=== PATIENT | male | born 1955 | race Two or more races ===

== ENCOUNTER 2016-07-12 12:43 | Emergency (ER) | payer OTHER ==
[~2016-07-12] VITALS: Wt 78.0 kg
[~2016-07-12 12:43] MED LIST: ASPI81TA3 PO; ATOR40TA68 PO; CARV25TA79 PO; EZET10TA3 PO; FURO-110 PO; HYDR-3671 PO; ISOS30TA5 PO; LOSA50TA6 PO; RANO500T2 PO; TICA90TA PO
[2016-07-12] MEDS ORDERED: ASPIRIN 81 MG TAB PO STA (17:34)
[2016-07-12 17:48] LABS: BASOPHILS % 0.7 % (0.0-2.0); EOSINOPHILS # 0.6 10^3/ul (0.0-0.5); EOSINOPHILS % 9.7 % (0.0-7.0); HEMATOCRIT 41.2 % (42.0-52.0); HEMOGLOBIN 13.9 g/dl (14.0-18.0); LYMPHOCYTES # 1.8 10^3/ul (0.8-2.9); LYMPHOCYTES % 28.6 % (15.0-51.0); MEAN CORPUSCULAR HEMOGLOBIN 30.3 pg (29.0-33.0); MEAN CORPUSCULAR HGB CONC 33.8 g/dl (32.0-37.0); MEAN CORPUSCULAR VOLUME 89.5 fl (82.0-101.0); MEAN PLATELET VOLUME 9.6 fl (7.4-10.4); MONOCYTE # 0.6 10^3/ul (0.3-0.9); MONOCYTES % 9.4 % (0.0-11.0); NEUTROPHIL # 3.2 10^3/ul (1.6-7.5); NEUTROPHILS % 51.6 % (39.0-77.0); PLATELET COUNT 113 10^3/UL (140-440); RED CELL DISTRIBUTION WIDTH 13.7 % (11.5-14.5); UNCORRECTED WBC 6.2 10^3/ul (4.8-10.8); WHITE BLOOD COUNT 6.2 10^3/ul (4.8-10.8)
[2016-07-12 17:57] LABS: CONDITION 1
[2016-07-12] MEDS ORDERED: CLOP75TA4 PO (18:17)
--- NOTE | 2016-07-12 18:27 | RADRPT ---
PROCEDURE: XR Chest. CLINICAL INDICATION: Chest pain TECHNIQUE: AP view of the chest was obtained. COMPARISON: 05/02/2016 FINDINGS: Dual lead pacer/ICD remains in place. Cardiac silhouette remains mildly enlarged. The lungs are joanie ar. No pleural effusion or pneumothorax is identified. IMPRESSION: No evidence of acute cardiopulmonary disease. Mild cardiomegaly. RPTAT: VV .Iraj Doty MD, MD Date Time Electronically viewed and signed by .Iraj Doty MD, MD on 07/12/2016 18:26 .O/
[2016-07-12 18:34] LABS: INR 1.05; PROTIME 13.7 Sec (12.2-14.2); PT RATIO 1.1
[2016-07-12 18:35] LABS: PARTIAL THROMBOPLASTIN TIME 28.8 Sec (25.0-35.0)
[2016-07-12 18:40] LABS: POTASSIUM 3.9 mmol/L (3.5-5.1)
[2016-07-12 18:43] LABS: CALCIUM 8.8 mg/dl (8.4-10.2); CREATININE 1.07 mg/dl (0.61-1.24)
[2016-07-12 18:55] LABS: TROPONIN-I 0.016 ng/ml (0.00-0.12)
[2016-07-12 20:59] VITALS: BP 148/85; PULSE 68; RESP 18; TEMP 98
--- NOTE | 2016-07-24 11:15 | ERD ---
ER Documentation Chief Complaint Date/Time DATE: 07/12/16 TIME: 22:00 Chief Complaint CHEST PAIN SINCE YESTERDAY HPI This is a 61 year old male with a history of coronary artery disease, recent cardiac stent placement at the [facility] now on Brilinta, with ischemic cardiomyopathy with ejection fraction 30%, status post pacemaker placement presenting with chest pain since yesterday. He states the pain is sharp in nature, occasionally burning, in the center of his chest. It lasts only a few seconds and has happened several times yesterday and today. It is not alleviated or exacerbated with exertion. Nonradiating. No associated dizziness, dyspnea, diaphoresis, nausea or vomiting. No recent fevers, chills, URI, or cough. No recent immobilization. Last admission to hospital was for CHF exacerbation in 04/2016. ROS All systems reviewed and are negative except as per history of present illness. Medications Home Meds Active Scripts Furosemide* (Lasix*) 20 Mg Tablet, 20 MG PO DAILY, #60 TAB Prov:TRUDY HAYWOOD MD 05/04/16 Isosorbide Mononitrate* (Isosorbide Mononitrate*) 30 Mg Tabsr, 30 MG PO DAILY, # 60 Prov:TRUDY HAYWOOD MD 10/23/14 Reported Medications Clopidogrel Bisulfate* (Clopidogrel Bisulfate*) 75 Mg Tablet, 75 MG PO DAILY, # 30 TAB 07/12/16 Carvedilol* (Carvedilol*) 25 Mg Tablet, 25 MG PO BID, #60 TAB 05/02/16 Ranolazine* (Ranexa*) 500 Mg Tab.sr.12h, 500 MG PO Q12, TAB 10/21/14 Losartan Potassium* (Losartan Potassium*) 50 Mg Tablet, 50 MG PO DAILY, TAB 10/21/14 Atorvastatin* (Atorvastatin*) 40 Mg Tablet, 40 MG PO HS, TAB 10/21/14 Hydralazine Hcl* (Hydralazine Hcl*) 25 Mg Tab, 25 MG PO DAILY, TAB 10/21/14 Ezetimibe* (Zetia*) 10 Mg Tablet, 10 MG PO DAILY, TAB 10/21/14 Aspirin* (Aspirin* Chew) 81 Mg Tab.chew, 81 MG PO DAILY, TAB.CHEW 10/21/14 Allergies Allergies: Coded Allergies: ticagrelor (Verified Allergy, Intermediate, Rash, angioedema , 07/12/16) PMhx/Soc History of Surgery: Yes (Pacemaker, PCI ) Anesthesia Reaction: No Hx Neurological Disorder: No Hx Respiratory Disorders: No Hx Cardiac Disorders: Yes (CAD, CHF EF 30%) Hx Psychiatric Problems: No Hx Miscellaneous Medical Probl: Yes (hyperlipidemia, HTN) Hx Alcohol Use: No Hx Substance Use: No Hx Tobacco Use: No Smoking Status: Never smoker FmHx Family History: No diabetes Physical Exam Vitals Temp: 98F BP: 185/86 Pulse: 86 Resp Rate: 18 O2 Sat: 99% RA Physical Exam Const: well appearing, no apparent distress, nontoxic Head: Atraumatic Eyes: Normal Conjunctiva ENT: Normal External Ears, Nose and Mouth. Neck: Full range of motion. No meningismus. Resp: Clear to auscultation bilaterally Cardio: Pacemaker noted, no surrounding erythema, tenderness. Regular rate and rhythm, no murmurs. 2+ radial pulses bilaterally, 2+ DP and PT pulses bilaterally Abd: Soft, non tender, non distended. Normal bowel sounds Skin: No petechiae or rashes Back: No midline or flank tenderness Ext: No cyanosis, or edema Neur: Awake and alert Psych: Normal Mood and Affect Results 24 hrs Laboratory Tests Test 07/12/16 17:40 07/12/16 18:15 Activated Partial Thromboplast Time 28.8Sec Basophils # 0.010^3/ul Basophils % 0.7% Eosinophils # 0.610^3/ul Eosinophils % 9.7% Hematocrit 41.2% Hemoglobin 13.9g/dl INR International Normalized Ratio 1.05 Lymphocytes # 1.810^3/ul Lymphocytes % 28.6% Mean Corpuscular Hemoglobin 30.3pg Mean Corpuscular Hemoglobin Concent 33.8g/dl Mean Corpuscular Volume 89.5fl Mean Platelet Volume 9.6fl Monocytes # 0.610^3/ul Monocytes % 9.4% Neutrophils # 3.210^3/ul Neutrophils % 51.6% Nucleated Red Blood Cells # 0.010^3/ul Nucleated Red Blood Cells % 0.0/100WBC Platelet Count 02743^3/UL Prothrombin Time 13.7Sec Prothrombin Time Ratio 1.1 Red Blood Count 4.6010^6/ul Red Cell Distribution Width 13.7% White Blood Count 6.210^3/ul Anion Gap 14 Blood Urea Nitrogen 15mg/dl Calcium Level 8.8mg/dl Carbon Dioxide Level 28mmol/L Chloride Level 104mmol/L Creatinine 1.07mg/dl Glucose Level 85mg/dl Potassium Level 3.9mmol/L Sodium Level 142mmol/L Troponin I 0.016ng/ml Current Medications Medications (Trade) Dose Ordered Sig/Sandra Route PRN Reason Start Time Stop Time Status Last Admin Dose Admin Aspirin (Aspirin) 162 mg ONCE STAT PO 07/12/16 17:34 07/12/16 17:37 DC 07/12/16 18:24 Procedures/MDM EKG: A-paced rhythm at 60 bpm LAFB, LAD with QRS widening and repolarization abnormality Anteroseptal Q waves present No evidence of Acute STEMI CXR: no acute abnormality , cardiomegaly noted Patients symptoms are concerning for a cardiac etiology. Other etiologies considered were PE, aortic dissection, pneumonia, pneumothorax, esophageal rupture. EKG showed no acute ischemia. Initial troponin was within normal limits. CXR grossly unremarkable without acute pathology. However patient is high risk of adverse events given his extensive cardiac history. Plan to admit for further evaluation. Patient is not safe for discharge and will need inpatient monitoring and further evaluation. Further workup will be deferred to the inpatient team. 20:50 I discussed the findings of the patient's EKG, CXR, and labs thus far with him. The patient stated if all of his workup so far is ok, he would like to go home. I explained to his the risks of leaving without further workup and that the initial tests done do not rule out a serious etiology for his symptoms. However the patient continues to insist on going home against medical advice. He is competent and able to make his own informed medical decisions at this time. I encouraged him to return to this ER or any other ER at any time for further evaluation if he feels worse or develops new symptoms. He voiced understanding of my return precautions. He agrees to see his PMD tomorrow. AMA form was signed. . Departure Diagnosis: Primary Impression: Chest pain in adult Condition: Stable Patient Instructions: Chest Pain, Uncertain Cause Referrals: MARYJANE STATON (PCP) Additional Instructions: Return to the ER for any worsening symptoms. Follow-up with your doctor first thing tomorrow morning. MARIAN QUIÑONES MD Jul 24, 2016 11:05
== END 2016-07-12 20:47 | disposition left against medical advice (07) ==
LOC: E/R 12:43
DX: R07.9 Chest pain, unspecified (principal); I25.10 Atherosclerotic heart disease of native coronary artery without angina pectoris; I50.9 Heart failure, unspecified; I10 Essential (primary) hypertension; Z79.01 Long term (current) use of anticoagulants; Z79.82 Long term (current) use of aspirin; Z95.0 Presence of cardiac pacemaker; Z98.61 Coronary angioplasty status
CPT/HCPCS: 71010; 80048; 84484; 85025; 85610; 85730; 93005; Z7610; 36415

== ENCOUNTER 2017-03-23 13:49 | Day surgery (SDC) | payer OTHER ==
[~2017-03-23] VITALS: Ht 167.6 cm; Wt 79.5 kg
[~2017-03-23 13:49] MED LIST changes: +CLOP75TA4 PO; -TICA90TA PO
[2017-03-23 14:18] VITALS: Ht 167.6 cm; Wt 79.5 kg
[2017-03-23] MEDS ORDERED: RANO500T2 PO (14:26)
[2017-03-23 14:59] VITALS: BP 160/88; PULSE 72; RESP 14
[2017-03-23] MEDS ORDERED: MIDAZOLAM 1 MG/ML 2 ML INJ ONE (15:22)
[2017-03-23] MEDS ORDERED: PROPOFOL 20 ML ONE (15:22)
[2017-03-23] MEDS ORDERED: LIDOCAINE 2% (SDV) 5 ML INJ ONE (15:22)
--- NOTE | 2017-03-23 15:43 | OPPN ---
Date/Time of Note Date/Time of Note DATE: 03/23/17 TIME: 15:40 Operative Report Preoperative Diagnosis gerd/chest pain Postoperative Diagnosis esophagitis grade A Operation/Procedure Performed EGD Surgeon see signature line family law legal assistant NONE Anesthesia: MAC (DR GEE) Estimated blood loss: none Transfusion Required none Specimen NO BIOPSY PT IS ON PLAVIX Grafts/Implants none Complications none FABIOLA WU MD Mar 23, 2017 15:43
[2017-03-23 16:07] VITALS: BP 161/79; RESP 14
--- NOTE | 2017-03-26 08:26 | GILP ---
DATE OF PROCEDURE: PREOPERATIVE DIAGNOSIS: Gastroesophageal reflux symptoms, noncardiac chest pain suspected. The pat katie has cardiac problem. He is on Plavix. He took even Plavix yesterday. PROCEDURE DONE: Esophagogastroduodenoscopy. No biopsies done as he is on Plavix. ANESTHESIA: By Dr. Beard. POSTOPERATIVE DIAGNOSIS: Distal esophagitis, grade I; some nodularity at that level in the gastroes ophageal junction but the stomach and duodenum normal. DESCRIPTION OF PROCEDURE: The patient was put in left lateral decubitus. After obtaining informed consent he was sedated, monitored by the anesthesiologist. Very carefully I advanced an Olympus vid eo upper endoscope into the esophagus, stomach and duodenum. Examination demonstrated mild erosion and esophagitis only grade I, at 38 cm. Mild nodularity noted here, but I could not biopsy because he is on Plavix. Small hiatus hernia noted, probably about 3 cm. An examination of the stomach and duodenum unremarkable. Then the scope was withdrawn. No biopsies were done as he is on Plavix. T he patient had no complications. Dear , my recommendation would be continue giving him PPI. When he is off Plavix, we can b iopsy. Also at that time we can do esophageal manometry study, etc. Dictated By: FABIOLA DAWSON Conf#: [id number] DID#: [id number]
== END 2017-03-23 15:51 | disposition home or self-care (01) ==
LOC: GIL 13:49
PROVIDERS: ATTEND Internal Medicine
DX: K21.0 Gastro-esophageal reflux disease with esophagitis (principal); I25.2 Old myocardial infarction; Z95.5 Presence of coronary angioplasty implant and graft; Z95.0 Presence of cardiac pacemaker; I10 Essential (primary) hypertension; E78.5 Hyperlipidemia, unspecified; Z86.73 Personal history of transient ischemic attack (TIA), and cerebral infarction without residual deficits; Z79.02 Long term (current) use of antithrombotics/antiplatelets; R07.89 Other chest pain; K22.10 Ulcer of esophagus without bleeding; K44.9 Diaphragmatic hernia without obstruction or gangrene; K21.9 Gastro-esophageal reflux disease without esophagitis
CPT/HCPCS: 43235; J2250; Z7610